=== PATIENT | female | born 1990 | race Caucasian/White ===

== ENCOUNTER 2023-06-13 16:56 | Emergency (ER) | payer MEDICAID, SELFPAY ==
[2023-06-13 17:18] VITALS: BP 138/97; PULSE 72; RESP 16; TEMP 37.2; O2SAT 99
--- NOTE | 2023-06-13 17:57 | ED.SKABFB ---
HPI - Skin/Abscess/Foreign Bdy General Chief complaint: Skin/Abscess/Foreign Body Stated complaint: rash Time Seen by Provider: 06/13/23 17:58 Source: patient Mode of arrival: ambulatory Limitations: no limitations History of Present Illness HPI narrative: 33-year-old female presented for 2 complaints. For she endorses red itchy rash to bilateral hands and forearms worsening over the past 6 weeks. Pt has used hydrocortisone, lidocaine, benadryl, hydroxyzine, triamcinolone. States nothing is helping. Denies any other locations of rash. Denies lip, tongue, or throat swelling, shortness of breath or wheezing. Denies changes to soap, detergent, lotion, or any other exposures. No one else in the house or any contacts with similar symptoms. Also reports mood changes for 18 months following something personal. States she will laugh inappropriately and become tearful easily. Denies SI/HI. Does not have a pcp, states 'she left.' Related Data Allergies Allergy/AdvReac Type Severity Reaction Status Date / Time honey Allergy Hives Verified 06/13/23 17:17 Review of Systems Review of Systems: CONSTITUTIONAL: Denies body aches, fever, chills, or sweats. EYES: Denies visual changes, redness, or discharge. ENT: Denies rhinorrhea, congestion CARDIOVASCULAR: Denies chest pain, palpitations, or edema. RESPIRATORY: Denies cough or dyspnea. GASTROINTESTINAL: Denies abdominal pain, nausea, vomiting, or diarrhea. SKIN: Reports rash to arms MUSCULOSKELETAL: Denies back pain, joint pain, or myalgia. NEUROLOGIC: Denies headache, numbness, tingling, or weakness. [facility] Past Medical History Medical History (Updated 06/13/23 @ 19:02 by Marleen Crowder, TIP) No pertinent past medical history Comments At time of signature, I have reviewed and agree with nursing past medical, surgical, social and family history unless otherwise noted. Please see nursing chart for further information. There is no relevant family history pertinent to the presenting complaint Exam Narrative: GENERAL: Well-appearing ENT: Mucous membranes moist. Oropharynx without edema, erythema or lesions. NECK: Supple. No lymphadenopathy CHEST: Clear to auscultation. HEART: Regular rate and rhythm. SKIN: Warm, dry. Scattered erythematous papular rash to bilateral hands, rough and dry c/w eczema; extensive scattered patches to bilateral forearms. NEURO: Alert and oriented x3. PSYCH: tearful at times Course Course Emergency Course: Patient is aware of diagnosis, understands and agrees to treatment plan. Anticipatory guidance given. Patient agrees to follow-up as directed and is aware of reasons to seek care at the emergency department. Portions of this record may have been created with voice recognition software Level of Care: Express Care Visit Vital Signs Vital signs: Vital Signs Temperature 98.9 F 06/13/23 17:18 Pulse Rate 72 06/13/23 17:18 Respiratory Rate 16 06/13/23 17:18 Blood Pressure 138/97 H 06/13/23 17:18 Pulse Oximetry 99 06/13/23 17:18 Oxygen Delivery Room Air 06/13/23 17:18 Temperature 98.9 F 06/13/23 17:18 Pulse Rate 72 06/13/23 17:18 Respiratory Rate 16 06/13/23 17:18 Blood Pressure 138/97 H 06/13/23 17:18 Pulse Oximetry 99 06/13/23 17:18 Oxygen Delivery Room Air 06/13/23 17:18 Reviewed MDM - Skin/Abscess/Foreign Bdy MDM Narrative Medical decision making narrative: Discussed physical exam findings. Advised supportive measures and signs/symptoms to go to the ER. Advised establishing with pcp regarding mood changes, recommend f/u with pcp and/or derm for the rash. Reviewed Rx's. Instructed patient to go to nearest ER immediately for any worsening symptoms including but not limited to: fever, spreading rash, pain, chest pain, trouble breathing, or any symptoms concerning to the patient. Pt is appropriate for outpt treatment and f/u. Differential Diagnosis Differential diagnosis: Likely absce
== END 2023-06-13 18:40 | disposition home or self-care (01) ==
PROVIDERS: Emergency Provider Nurse Practitioner Family
DX: L30.9 Dermatitis, unspecified (principal); F39 Unspecified mood [affective] disorder
CPT/HCPCS: 99203; G0463